=== PATIENT | female | born 1990 | race Caucasian/White ===

== ENCOUNTER 2018-03-06 18:26 | Emergency (ER) | payer OTHER ==
[~2018-03-06] VITALS: Ht 160 cm; Wt 81.8 kg
[2018-03-06] MEDS ORDERED: PROZAC40 M1 PO (18:34)
[2018-03-06 19:55] LABS: PH-URINE 7.5 (5.0 - 8.0); URINE APPEARANCE HAZY; URINE BILIRUBIN NEGATIVE (NEGATIVE); URINE BLOOD TRACE (NEGATIVE); URINE COLOR YELLOW; URINE GLUCOSE NEGATIVE (NEGATIVE); URINE KETONE NEGATIVE (NEGATIVE); URINE LEUKOCYTE ESTERASE 1+ (NEGATIVE); URINE NITRATE NEGATIVE (NEGATIVE); URINE PROTEIN(semi-quant) NEGATIVE (NEGATIVE); URINE UROBILINOGEN NORMAL (NORMAL)
[2018-03-06] MEDS ORDERED: CYCLOBENZAPRINE10 M1 PO (20:43)
[2018-03-06] MEDS ORDERED: EC-NAPROSYN500 MG PO (20:43)
[2018-03-06] MEDS ORDERED: NORCO 325 MG-51 TA1 PO (20:43)
[2018-03-06 21:01] VITALS: BP 150/79
== END 2018-03-06 21:01 | disposition home or self-care (01) ==
LOC: ED 18:26
PROVIDERS: Nurse Practitioner Family
DX: O99.89 Other specified diseases and conditions complicating pregnancy, childbirth and the puerperium (principal); M54.5 Low back pain; G89.29 Other chronic pain; M41.9 Scoliosis, unspecified; O99.335 Smoking (tobacco) complicating the puerperium; F17.200 Nicotine dependence, unspecified, uncomplicated; Z79.899 Other long term (current) drug therapy
CPT/HCPCS: J2360

== ENCOUNTER 2019-03-14 20:53 | Emergency (ER) | payer OTHER ==
[~2019-03-14 20:53] MED LIST: CYCLOBENZAPRINE10 M1 PO; EC-NAPROSYN500 MG PO; NORCO 325 MG-51 TA1 PO; PROZAC40 M1 PO
[2019-03-14 22:03] VITALS: BP 146/96
[2019-03-14] MEDS ORDERED: NORCO 325 MG-51 TA1 PO (22:04)
[2019-03-14] MEDS ORDERED: PREDNISONE20 M1 PO (22:04)
[2019-03-14] MEDS ORDERED: COLACE100 M1 PO (22:04)
[2019-03-14] MEDS ORDERED: MIRALAX17 GM PO (22:04)
== END 2019-03-14 22:08 | disposition home or self-care (01) ==
LOC: ED 20:53
DX: M54.16 Radiculopathy, lumbar region (principal); K59.00 Constipation, unspecified; F17.210 Nicotine dependence, cigarettes, uncomplicated; Z98.51 Tubal ligation status; Z88.6 Allergy status to analgesic agent; Z88.1 Allergy status to other antibiotic agents
CPT/HCPCS: J7512

== ENCOUNTER 2019-05-02 22:18 | Emergency (ER) | payer MEDICAID ==
[~2019-05-02] VITALS: Ht 160 cm; Wt 91.8 kg
[~2019-05-02 22:18] MED LIST changes: +COLACE100 M1 PO; +MIRALAX17 GM PO; +PREDNISONE20 M1 PO; +TYLENOL WITH CO1 TA1 PO; +ZITHROMAX Z PA250 MG PO
[2019-05-02] MEDS ORDERED: AMOXIL500 M1 PO (23:06)
[2019-05-02 23:15] VITALS: BP 137/94
== END 2019-05-02 23:15 | disposition home or self-care (01) ==
LOC: ED 22:18
DX: K08.89 Other specified disorders of teeth and supporting structures (principal); F17.210 Nicotine dependence, cigarettes, uncomplicated; Z88.8 Allergy status to other drugs, medicaments and biological substances; Z88.6 Allergy status to analgesic agent

== ENCOUNTER 2019-06-08 10:43 | Emergency (ER) | payer MEDICAID ==
[~2019-06-08] VITALS: Ht 160 cm; Wt 89.1 kg
[~2019-06-08 10:43] MED LIST changes: +AMOXIL500 M1 PO
[2019-06-08] MEDS ORDERED: NORCO 325 MG-51 TA1 PO (11:32)
[2019-06-08 11:46] VITALS: BP 148/96
== END 2019-06-08 11:48 | disposition home or self-care (01) ==
LOC: ED 10:43
DX: M77.9 Enthesopathy, unspecified (principal); F17.210 Nicotine dependence, cigarettes, uncomplicated; Z98.890 Other specified postprocedural states

== ENCOUNTER 2019-07-20 17:13 | Emergency (ER) | payer MEDICAID ==
[2019-07-20 17:18] VITALS: BP 158/88
[2019-07-21] MEDS ORDERED: TRAMADOL 50 MG TAB PO (10:48)
== END 2019-07-20 18:24 | disposition home or self-care (01) ==
LOC: ED 17:13
DX: S66.514A Strain of intrinsic muscle, fascia and tendon of right ring finger at wrist and hand level, initial encounter (principal); S70.01XA Contusion of right hip, initial encounter; W00.9XXA Unspecified fall due to ice and snow, initial encounter; Y92.009 Unspecified place in unspecified non-institutional (private) residence as the place of occurrence of the external cause

== ENCOUNTER 2019-07-21 08:59 | Emergency (ER) | payer MEDICAID ==
[2019-07-21 10:44] VITALS: BP 134/75
[2019-07-21] MEDS ORDERED: TRAMADOL 50 MG TAB PO (10:48)
== END 2019-07-21 10:54 | disposition home or self-care (01) ==
LOC: ED 08:59
DX: M79.89 Other specified soft tissue disorders (principal); M25.641 Stiffness of right hand, not elsewhere classified; W00.9XXA Unspecified fall due to ice and snow, initial encounter; Y92.009 Unspecified place in unspecified non-institutional (private) residence as the place of occurrence of the external cause

== ENCOUNTER 2019-08-22 17:11 | Emergency (ER) | payer MEDICAID ==
[~2019-08-22] VITALS: Ht 162.6 cm; Wt 85.9 kg
[~2019-08-22 17:11] MED LIST changes: +TRAMADOL 50 MG TAB PO
[2019-08-22] MEDS ORDERED: NORCO 325 MG-51 TA1 PO (17:50)
[2019-08-22] MEDS ORDERED: PREDNISONE20 M1 PO (17:57)
[2019-08-22 18:35] VITALS: BP 158/80
== END 2019-08-22 18:00 | disposition home or self-care (01) ==
LOC: ED 17:11
DX: M54.16 Radiculopathy, lumbar region (principal); M54.5 Low back pain; G89.29 Other chronic pain; F17.210 Nicotine dependence, cigarettes, uncomplicated; Z79.891 Long term (current) use of opiate analgesic; Z88.8 Allergy status to other drugs, medicaments and biological substances

== ENCOUNTER 2019-09-24 19:20 | Emergency (ER) | payer MEDICAID ==
[~2019-09-24] VITALS: Ht 170.2 cm; Wt 76.4 kg
[2019-09-24] MEDS ORDERED: DULOXETINE30 MG PO (19:50)
[2019-09-24] MEDS ORDERED: ED TYLENOL6 UDTAB/BO PO (19:50)
[2019-09-24 19:58] VITALS: BP 138/89
== END 2019-09-24 19:58 | disposition home or self-care (01) ==
LOC: ED 19:20
DX: M54.9 Dorsalgia, unspecified (principal); G89.29 Other chronic pain; Z76.0 Encounter for issue of repeat prescription; Z98.51 Tubal ligation status

== ENCOUNTER → 2019-11-23 | Outpatient (CLI) | payer MEDICAID ==
[~2019-11-23] MED LIST changes: +DULOXETINE30 MG PO; +ED TYLENOL6 UDTAB/BO PO
== END ==
LOC: RAD 09:38
DX: N93.9 Abnormal uterine and vaginal bleeding, unspecified (principal)

== ENCOUNTER 2020-01-14 12:29 | Emergency (ER) | payer MEDICAID ==
[~2020-01-14] VITALS: Ht 162.6 cm; Wt 85.5 kg
[2020-01-14 13:43] VITALS: BP 142/84
== END 2020-01-14 13:50 | disposition home or self-care (01) ==
LOC: ED 12:29
DX: S90.02XA Contusion of left ankle, initial encounter (principal); F32.9 Major depressive disorder, single episode, unspecified; F17.210 Nicotine dependence, cigarettes, uncomplicated; W20.8XXA Other cause of strike by thrown, projected or falling object, initial encounter; Y92.009 Unspecified place in unspecified non-institutional (private) residence as the place of occurrence of the external cause

== ENCOUNTER 2020-02-23 13:52 | Emergency (ER) | payer MEDICAID ==
[~2020-02-23] VITALS: Ht 162.6 cm; Wt 90.9 kg
[2020-02-23] MEDS ORDERED: OXYCODONE HYDROC5 M1 PO (14:14)
[2020-02-23 15:01] LABS: EOS # 0.2 (0.04-0.40); EOS % 1.5 % (1.0-5.0); HEMATOCRIT 26.3 % (37.0-47.0); HEMOGLOBIN 8.6 g/dL (12.5-16.0); LYMPH# 2.1 (1.50-4.00); MEAN CELL VOLUME 92 fl (78-100); MEAN CORPUSCULAR HEMOGLOBIN 30 pg (27-31); MEAN CORPUSCULAR HGB CONC 33 g/dL (33-37); MEAN PLATELET VOLUME 9.4 fl (7.4-10.4); MONO # 0.6 (0.20-0.80); NEU # 7.6 (1.40-6.50); PLATELET COUNT 284 K/mm3 (130-400); RED BLOOD COUNT 2.85 M/mm3 (4.10-5.30); RED CELL DISTRIBUTION WIDTH 12.7 % (11.5-14.5); WHITE BLOOD COUNT 10.6 K/mm3 (4.8-10.8)
[2020-02-23 15:05] LABS: URINE APPEARANCE CLEAR; URINE BILIRUBIN NEGATIVE (NEGATIVE); URINE BLOOD 250 ery/uL (NEGATIVE); URINE COLOR YELLOW; URINE GLUCOSE NEGATIVE (NEGATIVE); URINE KETONE NEGATIVE (NEGATIVE); URINE LEUKOCYTE ESTERASE 1+ (NEGATIVE); URINE NITRATE NEGATIVE (NEGATIVE); URINE PROTEIN(semi-quant) NEGATIVE (NEGATIVE); URINE UROBILINOGEN NORMAL (NORMAL)
[2020-02-23] MEDS ORDERED: ROXICODONE 55 MG/TAB PO (16:03)
[2020-02-23 16:10] VITALS: BP 121/68
== END 2020-02-23 16:17 | disposition home or self-care (01) ==
LOC: ED 13:52
PROVIDERS: Family Medicine
DX: G89.18 Other acute postprocedural pain (principal); D64.9 Anemia, unspecified; G89.4 Chronic pain syndrome; Z90.710 Acquired absence of both cervix and uterus
CPT/HCPCS: J2270

== ENCOUNTER 2020-03-06 16:54 | Emergency (ER) | payer MEDICAID ==
[~2020-03-06 16:54] MED LIST changes: +OXYCODONE HYDROC5 M1 PO; +ROXICODONE 55 MG/TAB PO
[2020-03-06 17:41] LABS: HEMATOCRIT 42.1 % (37.0-47.0); HEMOGLOBIN 13.7 g/dL (12.5-16.0); MEAN CELL VOLUME 90 fl (78-100); MEAN CORPUSCULAR HEMOGLOBIN 29 pg (27-31); MEAN CORPUSCULAR HGB CONC 33 g/dL (33-37); MEAN PLATELET VOLUME 8.6 fl (7.4-10.4); RED BLOOD COUNT 4.67 M/mm3 (4.10-5.30); RED CELL DISTRIBUTION WIDTH 13.9 % (11.5-14.5)
[2020-03-06 17:43] LABS: ALBUMIN 4.1 g/dL (3.5-5.0); POTASSIUM 4.4 mmol/L (3.5-5.1)
[2020-03-06 17:44] LABS: CALCIUM 9.1 mg/dL (8.3-10.5)
[2020-03-06 17:45] LABS: TOTAL PROTEIN 7.2 g/dL (6.4-8.3)
[2020-03-06 17:47] LABS: TOTAL BILIRUBIN 0.5 mg/dL (0.2-1.2)
[2020-03-06 17:55] LABS: PLATELET COUNT 573 K/mm3 (130-400); WHITE BLOOD COUNT 20.5 K/mm3 (4.8-10.8)
[2020-03-06 18:17] LABS: BAND 1 % (0-10); LYMPHOCYTE 11 % (20-51); MONOCYTE 2 % (3-10); NEUTROPHILS 84 % (42-75)
[2020-03-06 19:30] VITALS: BP 151/97
== END 2020-03-06 20:10 | disposition short-term general hospital (02) ==
LOC: ED 16:54
PROVIDERS: Nurse Practitioner Family
DX: R10.32 Left lower quadrant pain (principal); F17.210 Nicotine dependence, cigarettes, uncomplicated; Z88.6 Allergy status to analgesic agent; Z79.891 Long term (current) use of opiate analgesic
CPT/HCPCS: J1170; J2270; J2405; J2543; J7030; Q9967

== ENCOUNTER 2020-05-23 14:48 | Emergency (ER) | payer MEDICAID ==
[~2020-05-23 14:48] MED LIST changes: +AMOXIL500 M1; +ERTAPENEM1 GM IV; +ONDANSETRON ODT8 MG PO; +PERCOCET 325 MG1 TA2 PO
[2020-05-23] MEDS ORDERED: NORCO 325 MG-51 TA1 PO (16:30)
[2020-05-23] MEDS ORDERED: CYCLOBENZAPRINE10 M1 PO (16:30)
[2020-05-23 16:55] VITALS: BP 138/95
== END 2020-05-23 16:43 | disposition home or self-care (01) ==
LOC: ED 14:48
DX: M62.830 Muscle spasm of back (principal); F41.9 Anxiety disorder, unspecified; F17.210 Nicotine dependence, cigarettes, uncomplicated; Z90.710 Acquired absence of both cervix and uterus; Z88.6 Allergy status to analgesic agent; Z91.040 Latex allergy status; Z79.899 Other long term (current) drug therapy
CPT/HCPCS: J2360

== ENCOUNTER 2020-07-10 02:06 | Emergency (ER) | payer MEDICAID ==
[2020-07-10] MEDS ORDERED: DULOXETINE30 MG PO (02:17)
[2020-07-10 02:42] LABS: URINE APPEARANCE CLOUDY; URINE COLOR YELLOW
[2020-07-10 02:43] LABS: URINE BILIRUBIN NEGATIVE (NEGATIVE); URINE BLOOD NEGATIVE (NEGATIVE); URINE GLUCOSE NEGATIVE (NEGATIVE); URINE KETONE 1+ (NEGATIVE); URINE LEUKOCYTE ESTERASE TRACE (NEGATIVE); URINE NITRATE NEGATIVE (NEGATIVE); URINE PROTEIN(semi-quant) TRACE mg/dL (NEGATIVE); URINE UROBILINOGEN NORMAL (NORMAL)
[2020-07-10 03:08] VITALS: BP 122/98
== END 2020-07-10 03:08 | disposition home or self-care (01) ==
LOC: ED 02:06
PROVIDERS: Family Medicine
DX: M54.6 Pain in thoracic spine (principal); G89.29 Other chronic pain; F41.9 Anxiety disorder, unspecified; F32.9 Major depressive disorder, single episode, unspecified; F17.210 Nicotine dependence, cigarettes, uncomplicated; Z90.710 Acquired absence of both cervix and uterus; Z88.6 Allergy status to analgesic agent; Z91.040 Latex allergy status; Z79.899 Other long term (current) drug therapy

== ENCOUNTER 2020-10-15 18:35 | Emergency (ER) | payer MEDICAID ==
[2020-10-15 20:00] VITALS: BP 137/65
== END 2020-10-15 20:00 | disposition home or self-care (01) ==
LOC: ED 18:35
DX: S61.210A Laceration without foreign body of right index finger without damage to nail, initial encounter (principal); F17.210 Nicotine dependence, cigarettes, uncomplicated; Z90.710 Acquired absence of both cervix and uterus; Z88.6 Allergy status to analgesic agent; Z91.040 Latex allergy status; W26.8XXA Contact with other sharp object(s), not elsewhere classified, initial encounter; Y92.009 Unspecified place in unspecified non-institutional (private) residence as the place of occurrence of the external cause

== ENCOUNTER 2020-10-18 12:54 | Emergency (ER) | payer MEDICAID ==
[2020-10-18 13:33] LABS: EOS # 0.1 (0.04-0.40); EOS % 0.7 % (1.0-5.0); HEMATOCRIT 46.5 % (37.0-47.0); HEMOGLOBIN 15.2 g/dL (12.5-16.0); LYMPH# 2.1 (1.50-4.00); MEAN CELL VOLUME 90 fl (78-100); MEAN CORPUSCULAR HEMOGLOBIN 30 pg (27-31); MEAN CORPUSCULAR HGB CONC 33 g/dL (33-37); MEAN PLATELET VOLUME 9.4 fl (7.4-10.4); MONO # 0.5 (0.20-0.80); NEU # 6.3 (1.40-6.50); PLATELET COUNT 288 K/mm3 (130-400); RED BLOOD COUNT 5.15 M/mm3 (4.10-5.30); WHITE BLOOD COUNT 9.1 K/mm3 (4.8-10.8)
[2020-10-18 13:42] LABS: URINE APPEARANCE CLOUDY; URINE BILIRUBIN NEGATIVE (NEGATIVE); URINE BLOOD NEGATIVE (NEGATIVE); URINE COLOR YELLOW; URINE GLUCOSE NEGATIVE (NEGATIVE); URINE KETONE NEGATIVE (NEGATIVE); URINE LEUKOCYTE ESTERASE NEGATIVE (NEGATIVE); URINE NITRATE NEGATIVE (NEGATIVE); URINE PROTEIN(semi-quant) NEGATIVE (NEGATIVE); URINE UROBILINOGEN NORMAL (NORMAL)
[2020-10-18 14:21] VITALS: BP 142/86
== END 2020-10-18 14:22 | disposition home or self-care (01) ==
LOC: ED 12:54
PROVIDERS: Family Medicine
DX: R10.32 Left lower quadrant pain (principal); M25.552 Pain in left hip

== ENCOUNTER → 2020-11-11 | Outpatient (CLI) | payer MEDICAID ==
[2020-10-18 14:21] VITALS: BP 142/86
[~2020-11-11] MED LIST changes: +BUSPIRONE5 MG PO; +EPINEPHRIN0.3 MG/0.3 IJ; +GOOD SENSE OMEP20 MG PO; +HYDROXYZINE HCL25 M1 PO; +KLONOPIN 1MG1 MG PO; +PEPCID 20MG TAB20 MG PO; +PRILOSEC 20MG20 MG PO; +PROPRANOLOL HCL40 M2 PO; +WELLBUTRIN SR150 M2 PO; +XANAX0.25 M1 PO
== END ==
LOC: RAD 10:00
DX: J33.9 Nasal polyp, unspecified (principal); J34.89 Other specified disorders of nose and nasal sinuses

== ENCOUNTER 2020-12-30 15:09 | Emergency (ER) | payer MEDICAID ==
[~2020-12-30 15:09] MED LIST changes: -BUSPIRONE5 MG PO; -EPINEPHRIN0.3 MG/0.3 IJ; -GOOD SENSE OMEP20 MG PO; -HYDROXYZINE HCL25 M1 PO; -KLONOPIN 1MG1 MG PO; -PEPCID 20MG TAB20 MG PO; -PRILOSEC 20MG20 MG PO; -PROPRANOLOL HCL40 M2 PO; -WELLBUTRIN SR150 M2 PO; -XANAX0.25 M1 PO
[2020-12-30] MEDS ORDERED: ONDANSETRON ODT8 MG PO (18:27)
[2020-12-30 18:34] VITALS: BP 121/72
== END 2020-12-30 18:42 | disposition home or self-care (01) ==
LOC: ED 15:09
DX: G43.909 Migraine, unspecified, not intractable, without status migrainosus (principal); J32.0 Chronic maxillary sinusitis; Z88.6 Allergy status to analgesic agent
CPT/HCPCS: J0595; J1200; J2550; J7030

== ENCOUNTER 2021-01-17 11:10 | Emergency (ER) | payer MEDICAID ==
[2021-01-17] MEDS ORDERED: PROPRANOLOL HCL40 M2 PO (11:33)
[2021-01-17 12:00] LABS: BASO # 0.06 (0.02-0.10); EOS # 0.87 (0.04-0.40); HEMATOCRIT 40.8 % (37.0-47.0); HEMOGLOBIN 13.3 g/dL (12.5-16.0); LYMPH# 2.33 (1.50-4.00); MEAN CELL VOLUME 92 fl (78-100); MEAN CORPUSCULAR HEMOGLOBIN 30 pg (27-31); MEAN CORPUSCULAR HGB CONC 33 g/dL (33-37); MONO # 0.57 (0.20-0.80); NEU # 5.84 (1.40-6.50); PLATELET COUNT 254 K/mm3 (130-400); RED BLOOD COUNT 4.42 M/mm3 (4.10-5.30); WHITE BLOOD COUNT 9.7 K/mm3 (4.8-10.8)
[2021-01-17] MEDS ORDERED: GOOD SENSE OMEP20 MG PO (12:38)
[2021-01-17 13:14] VITALS: BP 115/64
== END 2021-01-17 13:20 | disposition home or self-care (01) ==
LOC: ED 11:10
PROVIDERS: Family Medicine
DX: F41.9 Anxiety disorder, unspecified (principal); K21.9 Gastro-esophageal reflux disease without esophagitis; G43.909 Migraine, unspecified, not intractable, without status migrainosus; J32.0 Chronic maxillary sinusitis; F17.290 Nicotine dependence, other tobacco product, uncomplicated

== ENCOUNTER 2021-01-23 09:52 | Emergency (ER) | payer MEDICAID ==
[~2021-01-23 09:52] MED LIST changes: +GOOD SENSE OMEP20 MG PO; +PROPRANOLOL HCL40 M2 PO
[2021-01-23] MEDS ORDERED: WELLBUTRIN SR150 M2 PO (10:13)
[2021-01-23] MEDS ORDERED: HYDROXYZINE HCL25 M1 PO (10:13)
[2021-01-23] MEDS ORDERED: PRILOSEC 20MG20 MG PO (10:14)
[2021-01-23] MEDS ORDERED: EPINEPHRIN0.3 MG/0.3 IJ (10:14)
[2021-01-23 10:53] LABS: ALBUMIN 3.8 g/dL (3.5-5.0)
[2021-01-23 10:54] LABS: POTASSIUM 4.4 mmol/L (3.5-5.1); SODIUM 141 mmol/L (136-145)
[2021-01-23 10:55] LABS: CALCIUM 8.6 mg/dL (8.3-10.5)
[2021-01-23 10:56] LABS: GLUCOSE 87 mg/dL (65-105); TOTAL PROTEIN 6.5 g/dL (6.4-8.3)
[2021-01-23 10:57] LABS: CARBON DIOXIDE 23 mmol/L (22-29)
[2021-01-23 10:58] LABS: TOTAL BILIRUBIN 0.4 mg/dL (0.2-1.2)
[2021-01-23 10:59] LABS: BASO # 0.09 (0.02-0.10); EOS # 0.28 (0.04-0.40); EOS % 2.5 % (1.0-5.0); HEMATOCRIT 40.6 % (37.0-47.0); HEMOGLOBIN 13.5 g/dL (12.5-16.0); LYMPH# 2.98 (1.50-4.00); MEAN CELL VOLUME 91 fl (78-100); MEAN CORPUSCULAR HEMOGLOBIN 30 pg (27-31); MEAN CORPUSCULAR HGB CONC 33 g/dL (33-37); MEAN PLATELET VOLUME 9.1 fl (7.4-10.4); MONO # 0.77 (0.20-0.80); PLATELET COUNT 315 K/mm3 (130-400); RED BLOOD COUNT 4.45 M/mm3 (4.10-5.30); RED CELL DISTRIBUTION WIDTH 12.6 % (11.5-14.5); WHITE BLOOD COUNT 11.2 K/mm3 (4.8-10.8)
[2021-01-23 11:02] LABS: AST-SGOT 21 U/L (5-34)
[2021-01-23 11:03] LABS: ALT/SGPT 16 U/L (0-55); LIPASE 26 U/L (8-78)
[2021-01-23 11:26] LABS: TROPONIN-I < 0.03 ng/mL (<0.030)
[2021-01-23 11:45] LABS: PH-URINE 7.5 (5.0 - 8.0); URINE APPEARANCE CLOUDY; URINE BILIRUBIN NEGATIVE (NEGATIVE); URINE BLOOD NEGATIVE (NEGATIVE); URINE COLOR YELLOW; URINE GLUCOSE NEGATIVE (NEGATIVE); URINE KETONE NEGATIVE (NEGATIVE); URINE NITRATE NEGATIVE (NEGATIVE); URINE PROTEIN(semi-quant) NEGATIVE (NEGATIVE); URINE UROBILINOGEN NORMAL (NORMAL)
[2021-01-23 11:46] LABS: URINE LEUKOCYTE ESTERASE TRACE (NEGATIVE)
[2021-01-23 11:53] LABS: URINE MUCUS PRESENT (NOT PRESENT)
[2021-01-23] MEDS ORDERED: XANAX0.25 M1 PO (11:59)
[2021-01-23] MEDS ORDERED: PEPCID 20MG TAB20 MG PO (11:59)
[2021-01-23 12:01] VITALS: BP 136/90
== END 2021-01-23 12:06 | disposition home or self-care (01) ==
LOC: ED 09:52
PROVIDERS: Physician Assistant
DX: F41.9 Anxiety disorder, unspecified (principal); K21.9 Gastro-esophageal reflux disease without esophagitis; G43.909 Migraine, unspecified, not intractable, without status migrainosus; F17.200 Nicotine dependence, unspecified, uncomplicated; Z79.899 Other long term (current) drug therapy

== ENCOUNTER 2021-03-30 08:02 | Emergency (ER) | payer MEDICAID ==
[~2021-03-30 08:02] MED LIST changes: +EPINEPHRIN0.3 MG/0.3 IJ; +HYDROXYZINE HCL25 M1 PO; +PEPCID 20MG TAB20 MG PO; +PRILOSEC 20MG20 MG PO; +WELLBUTRIN SR150 M2 PO; +XANAX0.25 M1 PO
[2021-03-30 08:14] VITALS: BP 129/85
[2021-03-30] MEDS ORDERED: KLONOPIN 1MG1 MG PO (08:26)
[2021-03-30] MEDS ORDERED: BUSPIRONE5 MG PO (08:26)
== END 2021-03-30 09:09 | disposition home or self-care (01) ==
LOC: ED 08:02
DX: G89.29 Other chronic pain (principal); M54.5 Low back pain; M25.551 Pain in right hip; F41.9 Anxiety disorder, unspecified; Z90.710 Acquired absence of both cervix and uterus; Z88.6 Allergy status to analgesic agent; Z79.899 Other long term (current) drug therapy

== ENCOUNTER 2021-07-24 03:19 | Emergency (ER) | payer MEDICAID ==
[~2021-07-24] VITALS: Ht 160 cm; Wt 84.0 kg
[~2021-07-24 03:19] MED LIST changes: +BUSPIRONE5 MG PO; +KLONOPIN 1MG1 MG PO
[2021-07-24] MEDS ORDERED: BRINTELLIX10 MG PO (03:40)
[2021-07-24 04:58] VITALS: BP 124/86
== END 2021-07-24 04:58 | disposition home or self-care (01) ==
LOC: ED 03:19
DX: K59.00 Constipation, unspecified (principal); F41.9 Anxiety disorder, unspecified; F17.210 Nicotine dependence, cigarettes, uncomplicated; Z91.040 Latex allergy status; Z79.899 Other long term (current) drug therapy

== ENCOUNTER 2021-08-09 13:33 | Emergency (ER) | payer MEDICAID ==
[~2021-08-09 13:33] MED LIST changes: +BRINTELLIX10 MG PO
[2021-08-09 15:25] VITALS: BP 139/89
== END 2021-08-09 15:21 | disposition home or self-care (01) ==
LOC: ED 13:33
DX: S92.425A Nondisplaced fracture of distal phalanx of left great toe, initial encounter for closed fracture (principal); F17.200 Nicotine dependence, unspecified, uncomplicated; Z88.6 Allergy status to analgesic agent; Z91.040 Latex allergy status; W21.11XA Struck by baseball bat, initial encounter
CPT/HCPCS: L4386

== ENCOUNTER 2023-09-27 11:16 | Emergency (ER) | payer MEDICAID ==
[~2023-09-27] VITALS: Ht 162.6 cm; Wt 67.7 kg
[2023-09-27] MEDS ORDERED: TYLENOL325 M1 PO (11:30)
[2023-09-27] MEDS ORDERED: VILAZODONE HCL10 MG PO (11:30)
[2023-09-27] MEDS ORDERED: AMPHETAMINE SAL15 M1 PO (11:30)
[2023-09-27] MEDS ORDERED: tiZANidine 4 MG TABLET PO ONE (12:00)
[2023-09-27] MEDS ORDERED: oxyCODONE 5 MG TAB PO ONE (12:00)
[2023-09-27 12:11] LABS: BASO # 0.03 K/mm3 (0.02-0.10); EOS % 1.1 % (1.0-5.0); HEMATOCRIT 41.9 % (37.0-47.0); HEMOGLOBIN 13.9 g/dL (12.5-16.0); LYMPH# 2.39 K/mm3 (1.50-4.00); MEAN CELL VOLUME 90 fl (78-100); MEAN CORPUSCULAR HEMOGLOBIN 30 pg (27-31); MEAN CORPUSCULAR HGB CONC 33 g/dL (33-37); MEAN PLATELET VOLUME 8.2 fl (7.4-10.4); MONO # 0.35 K/mm3 (0.20-0.80); NEU # 5.87 K/mm3 (1.40-6.50); PLATELET COUNT 277 K/mm3 (130-400); RED BLOOD COUNT 4.64 M/mm3 (4.10-5.30); RED CELL DISTRIBUTION WIDTH 13.1 % (11.5-14.5); WHITE BLOOD COUNT 8.8 K/mm3 (4.8-10.8)
[2023-09-27 12:16] LABS: ALBUMIN 3.9 g/dL (3.5-5.0)
[2023-09-27 12:17] LABS: CALCIUM 8.7 mg/dL (8.3-10.5)
[2023-09-27 12:19] LABS: TOTAL PROTEIN 6.3 g/dL (6.4-8.3)
[2023-09-27 12:20] LABS: TOTAL BILIRUBIN 0.4 mg/dL (0.2-1.2)
[2023-09-27] MEDS ORDERED: TIZANIDINE HYDRO2 M1 PO (13:28)
[2023-09-27] MEDS ORDERED: MELOXICAM15 MG PO (13:28)
[2023-09-27] MEDS ORDERED: Home HYDROcodone/Acetaminophen 5/325 MG #4 TABS/PACK PO ONE (13:30)
[2023-09-27 13:56] VITALS: BP 100/72
[2023-09-28] MEDS ORDERED: Meloxicam 7.5 MG TAB PO SCH (09:00)
[2023-09-28] MEDS ORDERED: Meloxicam 7.5 MG TAB PO ONE (12:30)
== END 2023-09-27 13:41 | disposition home or self-care (01) ==
LOC: ED 11:16
PROVIDERS: Physician Assistant
DX: M25.511 Pain in right shoulder (principal); Z91.040 Latex allergy status; Z87.828 Personal history of other (healed) physical injury and trauma; Z98.890 Other specified postprocedural states